=== PATIENT | female | born 1995 | race Asian ===

== ENCOUNTER 2020-11-05 13:06 | Emergency (ER) | payer OTHER ==
[~2020-11-05] VITALS: Ht 152.4 cm; Wt 49.9 kg
[2020-11-05 13:07] VITALS: BP_SYST 128
[2020-11-05 14:19] VITALS: BP_SYST 128
== END 2020-11-05 14:00 | disposition home or self-care (01) ==
LOC: SED 13:06
DX: O9A.211 Injury, poisoning and certain other consequences of external causes complicating pregnancy, first trimester (principal); Z3A.12 12 weeks gestation of pregnancy; V49.59XA Passenger injured in collision with other motor vehicles in traffic accident, initial encounter; Y93.89 Activity, other specified; Y92.89 Other specified places as the place of occurrence of the external cause; Y99.8 Other external cause status
CPT/HCPCS: 99284